=== PATIENT | male | born 1955 | race Caucasian/White ===

== ENCOUNTER 2017-01-13 11:59 | Emergency (ER) | payer OTHER ==
[2017-01-13 12:21] LABS: BASOPHIL 1.3 % (0-2); EOSINOPHIL 6.2 % (0-5); HCT 43.3 % (42.0-52.0); HGB 14.7 g/dl (13.2-18.0); LYMPHOCYTE 15.7 % (15-48); MCH 30.2 pg (25.0-31.0); MCHC 33.9 g/dL (32.0-36.0); MCV 88.9 fL (78.0-100.0); MONOCYTE 4.5 % (0-12); MPV 11.4 fL (6.0-9.5); NEUTROPHIL 72.3 % (41-80); PLT 254 K/uL (150-400); RBC 4.87 M/uL (4.70-6.00); RDW 13.4 % (11.5-14.0); WBC 7.1 K/uL (4.0-10.5)
[2017-01-13 12:32] LABS: INR 0.92 (0.9-1.2); PTT 29.8 SECONDS (23.2-31.4)
[2017-01-13 12:41] LABS: ALBUMIN 4.4 g/dL (3.5-5.0); BILIRUBIN - TOTAL 0.6 mg/dL (0.1-1.0); CREATININE 0.9 mg/dL (0.7-1.2); GLOBULIN (CALCULATION) 2.4 g/dL (2.2-4.2); MAGNESIUM 2.09 mg/dL (1.40-2.10); POTASSIUM 4.1 mmol/L (3.5-5.1); TOTAL PROTEIN 6.8 g/dL (6.4-8.3)
[2017-01-13 12:42] LABS: CKMB 2.65 ng/mL (0.97-4.94); MYOGLOBIN 39 ng/mL (26-65); PRO-BNP 24 pg/mL (0-125); TROPONIN T < 0.010 ng/mL
== END 2017-01-13 16:36 | disposition home or self-care (01) ==
LOC: FER 11:59
PROVIDERS: Internal Medicine
DX: R07.89 Other chest pain (principal); K80.20 Calculus of gallbladder without cholecystitis without obstruction; M25.551 Pain in right hip; G89.29 Other chronic pain; I10 Essential (primary) hypertension
CPT/HCPCS: 36415; 71010; 71275; 76705; 80053; 82550; 82553; 83735; 83874; 83880; 84484; 85025; 85379; 85610; 85730; 93005; J1885; Q9967